=== PATIENT | female | born 1955 | race Caucasian/White ===

== ENCOUNTER 2016-05-25 14:37 | Inpatient (IN) | payer BC ==
[~2016-05-25] VITALS: Ht 162.6 cm; Wt 99.5 kg
[~2016-05-25 14:37] MED LIST: ATIVAN0.5 MG PO; LEXAPRO10 MG PO; VITAMIN D; VITAMIN D250000 UNIT PO
[2016-05-25 15:23] LABS: BASOPHIL COUNT 0.1 K/uL (0-0.1); EOSINOPHIL (%) 4.5 % (0-5); EOSINOPHIL COUNT 0.5 K/uL (0-0.3); HEMATOCRIT 43.8 % (36.0-46.0); IMMATURE GRANULOCYTE (%) 0.4 % (0.0-0.7); INSTRUMENT ABS NEUTROPHIL CT 7.3 K/uL; LYMPHOCYTE COUNT 1.5 K/uL (1.0-2.8); MCH 30.7 PG (29.0-34.0); MCHC 32.6 G/DL (30.0-36.0); MEAN PLAT.VOLUME 9.1 uM^3 (9.5-12.4); MONOCYTE (%) 9.4 % (3-12); NEUTROPHIL (%) 70.5 % (45-76); NEUTROPHIL COUNT 7.3 K/uL (1.8-6.4); PLATELET COUNT 382 K/uL (156-360); RBC DIS.WIDTH-CV 13.6 % (11.8-14.6); RBC DIS.WIDTH-SD 46.9 % (39-53); RED BLOOD COUNT 4.66 M/uL (3.80-5.20); WHITE BLOOD COUNT 10.3 K/uL (4.1-10.2)
[2016-05-25 15:52] LABS: CHLORIDE 106 mEq/L (99-109); SODIUM 140 mEq/L (136-147)
[2016-05-25 15:53] LABS: GLUCOSE 123 mg/dL (70-99)
[2016-05-25 15:55] LABS: ANION GAP 12 MEQ/L (2-14)
[2016-05-25 15:57] LABS: GFR ESTIMATE (CALCULATED) > 59 mL/min/
[2016-05-25 15:58] LABS: UREA NITROGEN (BUN) 11 mg/dL (9-23)
[2016-05-25] MEDS ORDERED: CALTRATE 600 +1 EAC1 PO (18:13)
[2016-05-25] MEDS ORDERED: DAILY VALUE1 EACH PO (18:14)
[2016-05-25] MEDS ORDERED: VITAMIN B12 100MCG PO (18:14)
[2016-05-25] MEDS ORDERED: RED YEAST RICE600 M1 PO (18:14)
[2016-05-25] MEDS ORDERED: LO-DOSE ASPIRIN81 M2 PO (18:15)
[2016-05-25] MEDS ORDERED: VITAMIN D22000 UNIT PO (18:16)
[2016-05-25 18:54] LABS: ADD MIUA? NO; BILIRUBIN NEGATIVE; BLOOD NEGATIVE; COLOR YELLOW ((YELLOW)); GLUCOSE (STRIP) NEGATIVE; KETONES NEGATIVE; LEUKOCYTES NEGATIVE; NITRITE NEGATIVE; PROTEIN (STRIP) NEGATIVE; SPECIFIC GRAVITY 1.017 (1.000-1.030); UCUL ADDED? NO; UROBILINOGEN 0.2 MG/DL (0.2-1.0)
[2016-05-25 21:30] VITALS: BP 142/78
[2016-05-26 06:13] LABS: EOSINOPHIL (%) 2.2 % (0-5); EOSINOPHIL COUNT 0.2 K/uL (0-0.3); HEMATOCRIT 40.3 % (36.0-46.0); IMMATURE GRANULOCYTE (%) 0.4 % (0.0-0.7); LYMPHOCYTE COUNT 2.1 K/uL (1.0-2.8); MCH 30.9 PG (29.0-34.0); MCV 93.5 FL (83-99); MONOCYTE (%) 9.2 % (3-12); NEUTROPHIL (%) 67.5 % (45-76); PLATELET COUNT 355 K/uL (156-360); RBC DIS.WIDTH-CV 13.4 % (11.8-14.6); RBC DIS.WIDTH-SD 46.3 % (39-53); RED BLOOD COUNT 4.31 M/uL (3.80-5.20); WHITE BLOOD COUNT 10.3 K/uL (4.1-10.2)
[2016-05-26 06:42] LABS: ANION GAP 9 MEQ/L (2-14); CHLORIDE 104 MEQ/L (99-109); GFR ESTIMATE (CALCULATED) > 59 mL/min/; GLUCOSE 102 mg/dL (70-99); POTASSIUM 4.4 MEQ/L (3.7-5.4); SAMPLE HEMOLYSIS CHECK 0; SAMPLE ICTERIC CHECK 0; SAMPLE LIPEMIA CHECK 0; SODIUM 136 MEQ/L (136-147); UREA NITROGEN (BUN) 7 mg/dL (9-23)
[2016-05-26 07:38] VITALS: BP 139/83
[2016-05-26 15:22] VITALS: BP 119/90
[2016-05-26 22:48] VITALS: BP 141/79
[2016-05-27 07:00] LABS: INTER. NORMALIZED RATIO 1.1; PROTHROMBIN TIME 10.7 (9.2-11.2); PTT 30.9 (25-32)
[2016-05-27 07:02] LABS: MCH 30.6 PG (29.0-34.0); MCHC 32.3 G/DL (30.0-36.0); MEAN PLAT.VOLUME 9.4 uM^3 (9.5-12.4); PLATELET COUNT 322 K/uL (156-360); RBC DIS.WIDTH-CV 13.4 % (11.8-14.6); RBC DIS.WIDTH-SD 46.9 % (39-53); RED BLOOD COUNT 4.21 M/uL (3.80-5.20)
[2016-05-27 07:07] LABS: WHITE BLOOD COUNT 6.4 K/uL (4.1-10.2)
[2016-05-27 07:10] LABS: ANION GAP 9 MEQ/L (2-14); CHLORIDE 103 MEQ/L (99-109); GFR ESTIMATE (CALCULATED) > 59 mL/min/; GLUCOSE 89 mg/dL (70-99); POTASSIUM 4.3 MEQ/L (3.7-5.4); SAMPLE HEMOLYSIS CHECK 0; SAMPLE ICTERIC CHECK 0; SAMPLE LIPEMIA CHECK 0; SODIUM 138 MEQ/L (136-147); UREA NITROGEN (BUN) 7 mg/dL (9-23)
[2016-05-27 15:12] VITALS: BP 156/80
[2016-05-27 23:50] VITALS: BP 158/81
[2016-05-28 07:12] VITALS: BP 170/94
[2016-05-28 14:50] VITALS: BP 162/94
[2016-05-29 00:40] VITALS: BP 165/91
[2016-05-29 07:40] VITALS: BP 143/93; BP 173/93
[2016-05-29 11:44] LABS: ALKALINE PHOSPHATASE 50 IU/L (3-129); ANION GAP 11 MEQ/L (2-14); CHLORIDE 99 MEQ/L (99-109); DIRECT BILIRUBIN 0.4 mg/dL (0.0-0.3); GFR ESTIMATE (CALCULATED) > 59 mL/min/; GLUCOSE 132 mg/dL (70-99); MAGNESIUM 1.5 mg/dl (1.3-2.7); POTASSIUM 4.1 MEQ/L (3.7-5.4); PREALBUMIN 17.6 mg/dL (10-40); SAMPLE HEMOLYSIS CHECK 0; SAMPLE ICTERIC CHECK 0; SAMPLE LIPEMIA CHECK 0; SODIUM 133 MEQ/L (136-147); TOTAL BILIRUBIN 1.1 MG/DL (0.0-1.0); TRIGLYCERIDES 73 MG/DL (Normal: <150); UREA NITROGEN (BUN) 5 mg/dL (9-23)
[2016-05-29 17:13] VITALS: BP 154/77
[2016-05-29 23:18] VITALS: BP 149/74
[2016-05-30] VITALS (8 sets, daily range): BP systolic 142–176; BP diastolic 69–81
[2016-05-30 06:44] LABS: ALKALINE PHOSPHATASE 51 IU/L (3-129); ANION GAP 8 MEQ/L (2-14); CHLORIDE 100 MEQ/L (99-109); GFR ESTIMATE (CALCULATED) > 59 mL/min/; GLUCOSE 142 mg/dL (70-99); POTASSIUM 3.9 MEQ/L (3.7-5.4); SAMPLE HEMOLYSIS CHECK 0; SAMPLE ICTERIC CHECK 0; SAMPLE LIPEMIA CHECK 0; SODIUM 133 MEQ/L (136-147); TOTAL BILIRUBIN 0.9 MG/DL (0.0-1.0); UREA NITROGEN (BUN) 7 mg/dL (9-23)
[2016-05-30 06:54] LABS: EOSINOPHIL (%) 0.1 % (0-5); HEMATOCRIT 36.6 % (36.0-46.0); IMMATURE GRANULOCYTE (%) 0.6 % (0.0-0.7); IMMATURE GRANULOCYTE COUNT 0.1 K/uL; INSTRUMENT ABS NEUTROPHIL CT 11.6 K/uL; LYMPHOCYTE COUNT 1.2 K/uL (1.0-2.8); MCH 31.1 PG (29.0-34.0); MCHC 33.3 G/DL (30.0-36.0); MCV 93.4 FL (83-99); MEAN PLAT.VOLUME 9.3 uM^3 (9.5-12.4); MONOCYTE (%) 8.7 % (3-12); MONOCYTE COUNT 1.2 K/uL (0-0.8); NEUTROPHIL (%) 81.6 % (45-76); NEUTROPHIL COUNT 11.6 K/uL (1.8-6.4); PLATELET COUNT 333 K/uL (156-360); RBC DIS.WIDTH-CV 13.6 % (11.8-14.6); RBC DIS.WIDTH-SD 46.9 % (39-53); RED BLOOD COUNT 3.92 M/uL (3.80-5.20); WHITE BLOOD COUNT 14.2 K/uL (4.1-10.2)
[2016-05-30 06:55] LABS: MAGNESIUM 1.8 mg/dl (1.3-2.7)
[2016-05-30 11:06] LABS: POINT-OF-CARE METER ID UU13113725
[2016-05-31 03:32] VITALS: BP 182/84
[2016-05-31 07:45] LABS: HEMATOCRIT 34.9 % (36.0-46.0); MCH 31.2 PG (29.0-34.0); MCHC 32.7 G/DL (30.0-36.0); MCV 95.6 FL (83-99); MEAN PLAT.VOLUME 9.8 uM^3 (9.5-12.4); PLATELET COUNT 335 K/uL (156-360); RBC DIS.WIDTH-SD 49.1 % (39-53); RED BLOOD COUNT 3.65 M/uL (3.80-5.20)
[2016-05-31 09:24] LABS: ANION GAP 7 MEQ/L (2-14); CHLORIDE 108 MEQ/L (99-109); GFR ESTIMATE (CALCULATED) > 59 mL/min/; GLUCOSE 115 mg/dL (70-99); POTASSIUM 3.9 MEQ/L (3.7-5.4); SAMPLE HEMOLYSIS CHECK 0; SAMPLE ICTERIC CHECK 0; SAMPLE LIPEMIA CHECK 0; SODIUM 139 MEQ/L (136-147); UREA NITROGEN (BUN) 11 mg/dL (9-23)
[2016-05-31 09:28] LABS: MAGNESIUM 2.2 mg/dl (1.3-2.7)
[2016-05-31 10:28] VITALS: BP 185/84
[2016-05-31 14:23] VITALS: BP 162/70
[2016-05-31 18:38] VITALS: BP 147/67
[2016-05-31 19:17] VITALS: BP 160/72
[2016-05-31 22:34] VITALS: BP 136/64
[2016-06-01 03:09] VITALS: BP 154/75
[2016-06-01 07:28] LABS: HEMATOCRIT 31.6 % (36.0-46.0); MCH 30.7 PG (29.0-34.0); MCHC 32.6 G/DL (30.0-36.0); MEAN PLAT.VOLUME 10.1 uM^3 (9.5-12.4); PLATELET COUNT 309 K/uL (156-360); RBC DIS.WIDTH-CV 14.1 % (11.8-14.6); RBC DIS.WIDTH-SD 48.7 % (39-53); RED BLOOD COUNT 3.36 M/uL (3.80-5.20); WHITE BLOOD COUNT 9.4 K/uL (4.1-10.2)
[2016-06-01 07:43] LABS: ANION GAP 10 MEQ/L (2-14); CHLORIDE 111 MEQ/L (99-109); GFR ESTIMATE (CALCULATED) > 59 mL/min/; GLUCOSE 112 mg/dL (70-99); MAGNESIUM 1.9 mg/dl (1.3-2.7); POTASSIUM 3.7 MEQ/L (3.7-5.4); SAMPLE HEMOLYSIS CHECK 0; SAMPLE ICTERIC CHECK 0; SAMPLE LIPEMIA CHECK 0; SODIUM 141 MEQ/L (136-147); UREA NITROGEN (BUN) 11 mg/dL (9-23)
[2016-06-01 08:56] VITALS: BP 215/93
[2016-06-01 12:20] VITALS: BP 210/93
[2016-06-01 16:17] VITALS: BP 194/82
[2016-06-01 22:53] VITALS: BP 144/63
[2016-06-02 07:28] LABS: EOSINOPHIL (%) 8.4 % (0-5); EOSINOPHIL COUNT 0.8 K/uL (0-0.3); IMMATURE GRANULOCYTE (%) 0.8 % (0.0-0.7); IMMATURE GRANULOCYTE COUNT 0.1 K/uL; INSTRUMENT ABS NEUTROPHIL CT 6.3 K/uL; LYMPHOCYTE COUNT 1.2 K/uL (1.0-2.8); MCH 30.2 PG (29.0-34.0); MCHC 31.9 G/DL (30.0-36.0); MCV 94.7 FL (83-99); MEAN PLAT.VOLUME 9.6 uM^3 (9.5-12.4); MONOCYTE (%) 12.3 % (3-12); MONOCYTE COUNT 1.2 K/uL (0-0.8); NEUTROPHIL (%) 65.7 % (45-76); NEUTROPHIL COUNT 6.3 K/uL (1.8-6.4); PLATELET COUNT 355 K/uL (156-360); RBC DIS.WIDTH-CV 14.2 % (11.8-14.6); RBC DIS.WIDTH-SD 48.7 % (39-53); RED BLOOD COUNT 3.38 M/uL (3.80-5.20); WHITE BLOOD COUNT 9.6 K/uL (4.1-10.2)
[2016-06-02 08:21] LABS: ALKALINE PHOSPHATASE 79 IU/L (3-129); ANION GAP 11 MEQ/L (2-14); CHLORIDE 106 MEQ/L (99-109); GFR ESTIMATE (CALCULATED) > 59 mL/min/; GLUCOSE 122 mg/dL (70-99); MAGNESIUM 1.9 mg/dl (1.3-2.7); POTASSIUM 3.9 MEQ/L (3.7-5.4); SAMPLE HEMOLYSIS CHECK 0; SAMPLE ICTERIC CHECK 0; SAMPLE LIPEMIA CHECK 0; SODIUM 139 MEQ/L (136-147); UREA NITROGEN (BUN) 9 mg/dL (9-23)
[2016-06-02 08:22] LABS: TOTAL BILIRUBIN 0.5 MG/DL (0.0-1.0)
[2016-06-02 09:21] VITALS: BP 156/92
[2016-06-02 22:45] VITALS: BP 122/75
[2016-06-03 06:31] LABS: BASOPHIL COUNT 0.1 K/uL (0-0.1); EOSINOPHIL (%) 9.9 % (0-5); EOSINOPHIL COUNT 0.9 K/uL (0-0.3); HEMATOCRIT 32.2 % (36.0-46.0); IMMATURE GRANULOCYTE (%) 1.2 % (0.0-0.7); IMMATURE GRANULOCYTE COUNT 0.1 K/uL; INSTRUMENT ABS NEUTROPHIL CT 5.3 K/uL; LYMPHOCYTE COUNT 1.6 K/uL (1.0-2.8); MCH 30.5 PG (29.0-34.0); MCHC 32.3 G/DL (30.0-36.0); MCV 94.4 FL (83-99); MEAN PLAT.VOLUME 9.7 uM^3 (9.5-12.4); MONOCYTE (%) 15.9 % (3-12); MONOCYTE COUNT 1.5 K/uL (0-0.8); NEUTROPHIL (%) 55.3 % (45-76); NEUTROPHIL COUNT 5.3 K/uL (1.8-6.4); PLATELET COUNT 339 K/uL (156-360); RBC DIS.WIDTH-CV 14.1 % (11.8-14.6); RBC DIS.WIDTH-SD 48.9 % (39-53); RED BLOOD COUNT 3.41 M/uL (3.80-5.20); WHITE BLOOD COUNT 9.5 K/uL (4.1-10.2)
[2016-06-03 07:08] LABS: ALKALINE PHOSPHATASE 98 IU/L (3-129); ANION GAP 10 MEQ/L (2-14); CHLORIDE 105 MEQ/L (99-109); GFR ESTIMATE (CALCULATED) > 59 mL/min/; GLUCOSE 98 mg/dL (70-99); SAMPLE HEMOLYSIS CHECK 1; SAMPLE ICTERIC CHECK 0; SAMPLE LIPEMIA CHECK 0; SODIUM 136 MEQ/L (136-147); UREA NITROGEN (BUN) 11 mg/dL (9-23)
[2016-06-03 07:10] VITALS: BP 105/57
[2016-06-03 07:14] LABS: POTASSIUM 4.4 MEQ/L (3.7-5.4); TOTAL BILIRUBIN 0.7 MG/DL (0.0-1.0)
[2016-06-03] MEDS ORDERED: DOCUSATE SODIU100 MG PO (08:48)
[2016-06-03] MEDS ORDERED: LOPRESSOR50 MG PO (08:48)
[2016-06-03] MEDS ORDERED: FAMOTIDINE20 MG PO (08:49)
[2016-06-03] MEDS ORDERED: FLORASTOR250 MG PO (08:49)
[2016-06-03] MEDS ORDERED: BISAC-EVAC10 MG PR (08:49)
[2016-06-03] MEDS ORDERED: ENDOCET 5-3251 EACH PO (08:49)
[2016-06-03 11:40] VITALS: BP 136/82
== END 2016-06-03 13:38 | disposition home health service (06) | DRG 330 ==
LOC: EME 14:37 → EDOF 20:16 → 5EAST 20:16
PROVIDERS: Emergency Medicine; Hospitalist; Internal Medicine; Physician Assistant; Thoracic Surgery (Cardiothoracic Vascular Surgery)
DX: C18.7 Malignant neoplasm of sigmoid colon (principal); C96.9 Malignant neoplasm of lymphoid, hematopoietic and related tissue, unspecified; E83.39 Other disorders of phosphorus metabolism; Z68.38 Body mass index [BMI] 38.0-38.9, adult; E44.1 Mild protein-calorie malnutrition; I10 Essential (primary) hypertension; K59.00 Constipation, unspecified; Z85.3 Personal history of malignant neoplasm of breast; Z85.42 Personal history of malignant neoplasm of other parts of uterus; Z87.891 Personal history of nicotine dependence
CPT/HCPCS: 71010; 74020; 74176; 76937; 80048; 80048 91; 80053; 80076; 81003; 82378; 82607; 82746; 82948; 83735; 84100; 84134; 84478; 84630 90; 85025; 85027; 85610; 85730; 88309; 93005; 94010; 94667; 94668; 99202; 99281; 99285; J0330; J0360; J1100; J1170; J1644; J1650; J2270; J2405; J2543; J2710; J3010; J7050; J7120; P9045; S0028

== ENCOUNTER 2016-10-04 15:10 | Inpatient (IN) | payer BC ==
[~2016-10-04] VITALS: Ht 162.6 cm; Wt 92.4 kg
[~2016-10-04 15:10] MED LIST changes: +BISAC-EVAC10 MG PR; +CALTRATE 600 +1 EAC1 PO; +DAILY VALUE1 EACH PO; +DOCUSATE SODIU100 MG PO; +ENDOCET 5-3251 EACH PO; +FAMOTIDINE20 MG PO; +FLORASTOR250 MG PO; +LO-DOSE ASPIRIN81 M2 PO; +LOPRESSOR50 MG PO; +RED YEAST RICE600 M1 PO; +VITAMIN B12 100MCG PO; +VITAMIN D22000 UNIT PO
[2016-10-04 15:51] LABS: HEMATOCRIT 37.3 % (36.0-46.0); MCH 29.5 PG (29.0-34.0); MCHC 31.9 G/DL (30.0-36.0); MCV 92.6 FL (83-99); MEAN PLAT.VOLUME 9.5 uM^3 (9.5-12.4); PLATELET COUNT 366 K/uL (156-360); RBC DIS.WIDTH-CV 14.3 % (11.8-14.6); RBC DIS.WIDTH-SD 48.9 % (39-53); RED BLOOD COUNT 4.03 M/uL (3.80-5.20); WHITE BLOOD COUNT 9.8 K/uL (4.1-10.2)
[2016-10-04 16:01] LABS: CHLORIDE 104 mEq/L (99-109); POTASSIUM 4.1 mEq/L (3.7-5.4); SODIUM 138 mEq/L (136-147)
[2016-10-04 16:03] LABS: GLUCOSE 116 mg/dL (70-99)
[2016-10-04 16:04] LABS: ANION GAP 12 MEQ/L (2-14)
[2016-10-04 16:05] LABS: TOTAL BILIRUBIN 0.4 mg/dL (0.0-1.0)
[2016-10-04 16:06] LABS: ALKALINE PHOSPHATASE 119 IU/L (3-129)
[2016-10-04 16:07] LABS: GFR ESTIMATE (CALCULATED) > 59 mL/min/
[2016-10-04 16:08] LABS: UREA NITROGEN (BUN) 10 mg/dL (9-23)
[2016-10-04 16:10] LABS: LIPASE 30 U/L (1.0-51.0)
[2016-10-04 16:40] LABS: ADD MIUA? NO; BILIRUBIN NEGATIVE; BLOOD NEGATIVE; COLOR STRAW ((YELLOW)); GLUCOSE (STRIP) NEGATIVE; KETONES NEGATIVE; LEUKOCYTES NEGATIVE; NITRITE NEGATIVE; PROTEIN (STRIP) NEGATIVE; SPECIFIC GRAVITY 1.005 (1.000-1.030); UCUL ADDED? NO; UROBILINOGEN 0.2 MG/DL (0.2-1.0)
[2016-10-04 17:09] LABS: TROP-I INTERPRETATION NEGATIVE; TROPONIN-I < 0.01 ng/mL (0.0-0.30)
[2016-10-04 20:57] LABS: TROP-I INTERPRETATION NEGATIVE; TROPONIN-I < 0.01 ng/mL (0.0-0.30)
[2016-10-04] MEDS ORDERED: TYLENOL PM PO (21:10)
[2016-10-04 22:32] LABS: BASE EXCESS -1.8 mEq/L (-3 to +3); BICARBONATE 21.5 mEq/L (22-26); COMMENTS - BLOOD GASES A+C+; FI02 21 %; METHEMOGLOBIN 1.4 % (0-1.5); PCO2 31 mm Hg (35-45); PO2 68 mm Hg (80-100); SITE RR; TOTAL RESP RATE 18 resp/min; pH 7.45 (7.35-7.45)
[2016-10-05] VITALS (7 sets, daily range): BP systolic 105–138; BP diastolic 56–77
[2016-10-05 03:23] LABS: EOSINOPHIL (%) 4.7 % (0-5); EOSINOPHIL COUNT 0.5 K/uL (0-0.3); IMMATURE GRANULOCYTE (%) 0.4 % (0.0-0.7); INSTRUMENT ABS NEUTROPHIL CT 6.9 K/uL; LYMPHOCYTE COUNT 1.4 K/uL (1.0-2.8); MCH 29.8 PG (29.0-34.0); MCHC 32.4 G/DL (30.0-36.0); MCV 92.1 FL (83-99); MEAN PLAT.VOLUME 9.4 uM^3 (9.5-12.4); MONOCYTE (%) 10.5 % (3-12); NEUTROPHIL (%) 70.1 % (45-76); NEUTROPHIL COUNT 6.9 K/uL (1.8-6.4); PLATELET COUNT 293 K/uL (156-360); RBC DIS.WIDTH-CV 14.5 % (11.8-14.6); RED BLOOD COUNT 3.69 M/uL (3.80-5.20); WHITE BLOOD COUNT 9.9 K/uL (4.1-10.2)
[2016-10-05 03:29] LABS: INTER. NORMALIZED RATIO 1.2; PROTHROMBIN TIME 13.8 SEC (10.2-12.9)
[2016-10-05 03:32] LABS: PTT 30.8 SEC (25-37)
[2016-10-05 03:33] LABS: CHLORIDE 107 mEq/L (99-109); POTASSIUM 4.2 mEq/L (3.7-5.4); SODIUM 137 mEq/L (136-147)
[2016-10-05 03:35] LABS: GLUCOSE 110 mg/dL (70-99)
[2016-10-05 03:36] LABS: ANION GAP 8 MEQ/L (2-14)
[2016-10-05 03:37] LABS: TOTAL BILIRUBIN 0.6 mg/dL (0.0-1.0)
[2016-10-05 03:39] LABS: ALKALINE PHOSPHATASE 98 IU/L (3-129); GFR ESTIMATE (CALCULATED) > 59 mL/min/
[2016-10-05 03:40] LABS: UREA NITROGEN (BUN) 6 mg/dL (9-23)
[2016-10-05 04:29] LABS: ERTH.SED.RATE 88 MM/HR (0-30)
[2016-10-06 06:15] LABS: HEMATOCRIT 31.4 % (36.0-46.0); MCH 29.9 PG (29.0-34.0); MCHC 32.2 G/DL (30.0-36.0); MCV 92.9 FL (83-99); MEAN PLAT.VOLUME 9.2 uM^3 (9.5-12.4); PLATELET COUNT 279 K/uL (156-360); RBC DIS.WIDTH-CV 14.1 % (11.8-14.6); RED BLOOD COUNT 3.38 M/uL (3.80-5.20); WHITE BLOOD COUNT 12.6 K/uL (4.1-10.2)
[2016-10-06 06:42] LABS: ANION GAP 7 MEQ/L (2-14); CHLORIDE 102 MEQ/L (99-109); GFR ESTIMATE (CALCULATED) > 59 mL/min/; GLUCOSE 105 mg/dL (70-99); POTASSIUM 4.1 MEQ/L (3.7-5.4); SAMPLE HEMOLYSIS CHECK 0; SAMPLE ICTERIC CHECK 0; SAMPLE LIPEMIA CHECK 0; SODIUM 135 MEQ/L (136-147); UREA NITROGEN (BUN) 7 mg/dL (9-23)
[2016-10-06 07:55] VITALS: BP 102/62
[2016-10-06 15:29] VITALS: BP 101/60
[2016-10-07] VITALS: BP 123/69
[2016-10-07 07:15] VITALS: BP 127/83
[2016-10-07 07:20] LABS: HEMATOCRIT 33.5 % (36.0-46.0); MCH 29.8 PG (29.0-34.0); MCHC 32.2 G/DL (30.0-36.0); MCV 92.5 FL (83-99); MEAN PLAT.VOLUME 9.4 uM^3 (9.5-12.4); PLATELET COUNT 352 K/uL (156-360); RBC DIS.WIDTH-CV 13.6 % (11.8-14.6); RBC DIS.WIDTH-SD 46.7 % (39-53); RED BLOOD COUNT 3.62 M/uL (3.80-5.20); WHITE BLOOD COUNT 9.6 K/uL (4.1-10.2)
[2016-10-07 07:48] LABS: ANION GAP 9 MEQ/L (2-14); CHLORIDE 102 MEQ/L (99-109); GFR ESTIMATE (CALCULATED) > 59 mL/min/; GLUCOSE 93 mg/dL (70-99); POTASSIUM 4.1 MEQ/L (3.7-5.4); SAMPLE HEMOLYSIS CHECK 0; SAMPLE ICTERIC CHECK 0; SAMPLE LIPEMIA CHECK 0; SODIUM 138 MEQ/L (136-147); UREA NITROGEN (BUN) 6 mg/dL (9-23); VANCOMYCIN, TROUGH 11.6 MCG/ML (10-20)
[2016-10-07 16:25] VITALS: BP 135/79
[2016-10-07 23:20] VITALS: BP 114/72
[2016-10-08 06:20] LABS: HEMATOCRIT 33.9 % (36.0-46.0); MCH 30.3 PG (29.0-34.0); MCHC 32.7 G/DL (30.0-36.0); MCV 92.6 FL (83-99); MEAN PLAT.VOLUME 9.5 uM^3 (9.5-12.4); PLATELET COUNT 399 K/uL (156-360); RBC DIS.WIDTH-CV 14.1 % (11.8-14.6); RBC DIS.WIDTH-SD 47.6 % (39-53); RED BLOOD COUNT 3.66 M/uL (3.80-5.20); WHITE BLOOD COUNT 7.1 K/uL (4.1-10.2)
[2016-10-08 07:20] VITALS: BP 132/85
[2016-10-08 15:15] VITALS: BP 127/80
[2016-10-08 23:49] VITALS: BP 118/72
[2016-10-09 07:13] LABS: BASOPHIL COUNT 0.1 K/uL (0-0.1); EOSINOPHIL (%) 9.2 % (0-5); EOSINOPHIL COUNT 0.7 K/uL (0-0.3); HEMATOCRIT 37.4 % (36.0-46.0); IMMATURE GRANULOCYTE (%) 0.6 % (0.0-0.7); INSTRUMENT ABS NEUTROPHIL CT 3.7 K/uL; LYMPHOCYTE COUNT 1.9 K/uL (1.0-2.8); MCH 29.4 PG (29.0-34.0); MCHC 32.1 G/DL (30.0-36.0); MCV 91.7 FL (83-99); MEAN PLAT.VOLUME 9.1 uM^3 (9.5-12.4); MONOCYTE (%) 10.3 % (3-12); MONOCYTE COUNT 0.7 K/uL (0-0.8); NEUTROPHIL (%) 52.4 % (45-76); NEUTROPHIL COUNT 3.7 K/uL (1.8-6.4); PLATELET COUNT 506 K/uL (156-360); RBC DIS.WIDTH-CV 13.9 % (11.8-14.6); RBC DIS.WIDTH-SD 47.3 % (39-53); RED BLOOD COUNT 4.08 M/uL (3.80-5.20); WHITE BLOOD COUNT 7.1 K/uL (4.1-10.2)
[2016-10-09 07:15] VITALS: BP 122/82
[2016-10-09 07:49] LABS: ANION GAP 11 MEQ/L (2-14); CHLORIDE 102 MEQ/L (99-109); GFR ESTIMATE (CALCULATED) > 59 mL/min/; GLUCOSE 107 mg/dL (70-99); POTASSIUM 4.5 MEQ/L (3.7-5.4); SAMPLE HEMOLYSIS CHECK 0; SAMPLE ICTERIC CHECK 0; SAMPLE LIPEMIA CHECK 0; SODIUM 138 MEQ/L (136-147); UREA NITROGEN (BUN) 7 mg/dL (9-23)
[2016-10-09] MEDS ORDERED: LOPRESSOR50 MG PO (14:14)
[2016-10-09] MEDS ORDERED: CEPHALEXIN500 MG PO (14:14)
[2016-10-09] MEDS ORDERED: BISACODYL5 MG PO (14:17)
== END 2016-10-09 15:25 | disposition home health service (06) | DRG 872 ==
LOC: EME 15:10 → EXP 15:10 → ENRESERV 21:48 → EDOF 21:49 → ENRESERV 22:21 → EDOF 22:30 → 2EAST 22:30 → ENRESERV 22:32 → 2EAST 23:49
PROVIDERS: Emergency Medicine; Internal Medicine; Internal Medicine Infectious Disease; Nurse Practitioner Family; Physician Assistant Medical
DX: A41.2 Sepsis due to unspecified staphylococcus (principal); T81.4XXA Infection following a procedure, initial encounter; C78.00 Secondary malignant neoplasm of unspecified lung; L02.211 Cutaneous abscess of abdominal wall; E87.3 Alkalosis; C18.9 Malignant neoplasm of colon, unspecified; K52.9 Noninfective gastroenteritis and colitis, unspecified; I10 Essential (primary) hypertension; K59.00 Constipation, unspecified; F41.9 Anxiety disorder, unspecified; Z79.82 Long term (current) use of aspirin; Z68.34 Body mass index [BMI] 34.0-34.9, adult; Z85.038 Personal history of other malignant neoplasm of large intestine; Z79.899 Other long term (current) drug therapy; Z85.3 Personal history of malignant neoplasm of breast; Z87.891 Personal history of nicotine dependence; Z90.49 Acquired absence of other specified parts of digestive tract; Z90.710 Acquired absence of both cervix and uterus; Z93.3 Colostomy status; Z82.5 Family history of asthma and other chronic lower respiratory diseases; Z82.49 Family history of ischemic heart disease and other diseases of the circulatory system; Z82.3 Family history of stroke; Z80.49 Family history of malignant neoplasm of other genital organs
CPT/HCPCS: 36600; 71020; 71275; 74177; 80048; 80053; 80202; 81003; 82803; 83605; 83690; 84443; 84484; 85025; 85027; 85610; 85651; 85730; 87040; 87070; 87075; 87077; 87147; 87186; 87205; 93005; 94799; 99281; 99285; J0295; J1650; J3370; J7030; J7050; J7120

== ENCOUNTER 2016-10-25 09:26 | Outpatient (CLI) | payer BC ==
[~2016-10-25] VITALS: Ht 162.6 cm; Wt 90.7 kg
[~2016-10-25 09:26] MED LIST changes: +BISACODYL5 MG PO; +CEPHALEXIN500 MG PO; +TYLENOL PM PO
[2016-10-25 17:49] VITALS: BP 107/78
[2016-10-25 19:25] VITALS: BP 140/72
[2016-10-25 23:19] VITALS: BP 132/76
[2016-10-26 03:53] VITALS: BP 136/72
[2016-10-26 06:47] LABS: EOSINOPHIL (%) 5.5 % (0-5); EOSINOPHIL COUNT 0.4 K/uL (0-0.3); HEMATOCRIT 36.2 % (36.0-46.0); IMMATURE GRANULOCYTE (%) 0.3 % (0.0-0.7); INSTRUMENT ABS NEUTROPHIL CT 4.2 K/uL; LYMPHOCYTE COUNT 1.2 K/uL (1.0-2.8); MCH 29.6 PG (29.0-34.0); MCV 92.3 FL (83-99); MEAN PLAT.VOLUME 9.2 uM^3 (9.5-12.4); MONOCYTE (%) 11.3 % (3-12); MONOCYTE COUNT 0.7 K/uL (0-0.8); NEUTROPHIL (%) 64.3 % (45-76); NEUTROPHIL COUNT 4.2 K/uL (1.8-6.4); PLATELET COUNT 380 K/uL (156-360); RBC DIS.WIDTH-CV 13.9 % (11.8-14.6); RBC DIS.WIDTH-SD 47.4 % (39-53); RED BLOOD COUNT 3.92 M/uL (3.80-5.20); WHITE BLOOD COUNT 6.6 K/uL (4.1-10.2)
[2016-10-26 07:13] LABS: ANION GAP 5 MEQ/L (2-14); CHLORIDE 103 MEQ/L (99-109); GFR ESTIMATE (CALCULATED) > 59 mL/min/; GLUCOSE 101 mg/dL (70-99); POTASSIUM 4.4 MEQ/L (3.7-5.4); SAMPLE HEMOLYSIS CHECK 0; SAMPLE ICTERIC CHECK 0; SAMPLE LIPEMIA CHECK 0; SODIUM 135 MEQ/L (136-147); UREA NITROGEN (BUN) 9 mg/dL (9-23)
[2016-10-26 09:00] VITALS: BP 112/73
[2016-10-26 12:44] VITALS: BP 119/74
[2016-10-26 16:41] VITALS: BP 122/72
[2016-10-26 23:23] VITALS: BP 113/69
[2016-10-27 07:15] VITALS: BP 120/71
== END 2016-10-27 15:51 | disposition home or self-care (01) ==
LOC: OPR 09:26 → EDSTATUS 10:00 → OPR 10:00 → 2SOUTH 15:30 → 2EAST 15:30 → 2SOUTH 15:30 → ENRESERV 15:31 → 2EAST 16:51 → OPR 10-31 10:00
PROVIDERS: Internal Medicine
PROC: 0W9930Z Drainage of Right Pleural Cavity with Drainage Device, Percutaneous Approach (ICD-10-PCS; principal; 2016-10-25)
PROC: 0BBC3ZX Excision of Right Upper Lung Lobe, Percutaneous Approach, Diagnostic (ICD-10-PCS; principal; 2016-10-25)
DX: J95.811 Postprocedural pneumothorax (principal); C78.01 Secondary malignant neoplasm of right lung; T81.89XA Other complications of procedures, not elsewhere classified, initial encounter; Z85.3 Personal history of malignant neoplasm of breast; Z85.038 Personal history of other malignant neoplasm of large intestine; Z79.82 Long term (current) use of aspirin
CPT/HCPCS: 32552; 71010; 71020; 77012; 80048; 85025; 87070; 87075; 87076; 87077; 87147; 87185; 87186; 87205; 88305; 88341 TC; 88342 TC; C1769; G0378; J1644; J3010

== ENCOUNTER 2016-11-01 05:30 | Day surgery (SDC) | payer BC ==
[~2016-11-01] VITALS: Ht 162.6 cm; Wt 91.7 kg
[2016-11-01 06:37] VITALS: BP 114/73
[2016-11-01 07:25] LABS: INTER. NORMALIZED RATIO 1.1; PROTHROMBIN TIME 12.3 SEC (10.2-12.9)
[2016-11-01] MEDS ORDERED: ULTRAM50 MG PO (08:45)
[2016-11-01 09:27] VITALS: BP 119/72
[2016-11-01 10:31] VITALS: BP 122/70
== END 2016-11-01 10:32 | disposition home or self-care (01) ==
LOC: SDC 05:30
PROVIDERS: Thoracic Surgery (Cardiothoracic Vascular Surgery)
PROC: 0JB80ZZ Excision of Abdomen Subcutaneous Tissue and Fascia, Open Approach (ICD-10-PCS; principal; 2016-11-01)
DX: T81.4XXA Infection following a procedure, initial encounter (principal); B95.61 Methicillin susceptible Staphylococcus aureus infection as the cause of diseases classified elsewhere; Z90.49 Acquired absence of other specified parts of digestive tract; Z85.038 Personal history of other malignant neoplasm of large intestine; Z85.3 Personal history of malignant neoplasm of breast; G43.909 Migraine, unspecified, not intractable, without status migrainosus; Z87.891 Personal history of nicotine dependence; Z79.82 Long term (current) use of aspirin; Z92.3 Personal history of irradiation; Z92.21 Personal history of antineoplastic chemotherapy
CPT/HCPCS: 85610; 85730; 87070; 87075; 87076; 87077; 87147; 87185; 87186; 87205; J0330; J0690; J1100; J2250; J2405; J3010

== ENCOUNTER 2016-11-05 13:38 | Day surgery (SDC) | payer BC ==
[~2016-11-05] VITALS: Ht 162.6 cm; Wt 90.0 kg
[~2016-11-05 13:38] MED LIST changes: +ULTRAM50 MG PO
[2016-11-05 14:14] VITALS: BP 119/79
[2016-11-05 18:30] VITALS: BP 133/92
[2016-11-05 19:32] VITALS: BP 142/81
== END 2016-11-05 19:42 | disposition home or self-care (01) ==
LOC: SDC 13:38
PROC: 02HV33Z Insertion of Infusion Device into Superior Vena Cava, Percutaneous Approach (ICD-10-PCS; principal; 2016-11-05)
DX: C78.01 Secondary malignant neoplasm of right lung (principal); Z85.038 Personal history of other malignant neoplasm of large intestine; I10 Essential (primary) hypertension; R00.0 Tachycardia, unspecified; Z87.891 Personal history of nicotine dependence
CPT/HCPCS: 71010; C1751; J0690; J0696; J2250; J3010; J7050